=== PATIENT | female | born 1995 | race Caucasian/White ===

== ENCOUNTER 2022-11-29 18:10 | Emergency (ER) | payer BC ==
[2022-11-29] MEDS ORDERED: diphenhydrAMINE 50 MG Cap PO ONE (18:33)
[2022-11-29] MEDS ORDERED: Acetaminophen 500 MG Tab PO ONE (18:33)
[2022-11-29] MEDS ORDERED: Ketorolac 30 MG/ML SDV IM ONE (18:33)
[2022-11-29] MEDS ORDERED: Cyclobenzaprine 10 MG Tab PO ONE (18:33)
== END 2022-11-29 19:38 | disposition home or self-care (01) ==
LOC: FB.ED 18:10
DX: S39.012A Strain of muscle, fascia and tendon of lower back, initial encounter (principal); Z88.2 Allergy status to sulfonamides; Z88.1 Allergy status to other antibiotic agents
CPT/HCPCS: 96372; 99283; A9270-GY; J1885

== ENCOUNTER 2024-10-19 19:42 | Emergency (ER) | payer BC, OTHER ==
[2024-10-19] MEDS ORDERED: traMADol 50 MG Tab PO ONE (19:43)
[2024-10-19] MEDS: Sodium Chloride 0.9% 10 ML Syringe FLUSH PRN (20:15)
[2024-10-19 20:33] LABS: HEMOGLOBIN 13.8 g/dL (11.4-15.5); MEAN CORPUSCULAR HEMOGLOBIN 30.2 pg (23.9-33.9); MEAN CORPUSCULAR HGB CONC 33.7 g/dL (31.9-34.8); MEAN CORPUSCULAR VOLUME 89.5 fL (76.7-100.5); MEAN PLATELET VOLUME 7.7 fL (7.1-12.4); PLATELET COUNT,PLT 296 x10(3)uL (151-488); RED BLOOD CELL COUNT 4.58 x10(6)uL (3.60-5.20); RED CELL DISTRIBUTION WIDTH 13.3 % (12.3-16.5); WHITE BLOOD CELL COUNT,WBC 14.4 x10-3/uL (3.0-10.3)
[2024-10-19 20:39] LABS: C-REACTIVE PROTEIN 3.28 mg/dL (<0.50)
[2024-10-19 20:45] LABS: A/G RATIO 0.8; ALANINE AMINOTRANSFERASE,ALT 87 U/L (12-36); ALBUMIN 3.7 g/dL (3.5-5.2); ALKALINE PHOSPHATASE 101 IU/L (56-112); ASPARTATE AMNIOTRANSFERASE,AST 38 IU/L (5-25); BLOOD UREA NITROGEN,BUN 12 mg/dL (7-18); CALCIUM 8.9 mg/dL (8.6-10.2); CARBON DIOXIDE,CO2 28 mmol/L (21-32); CHLORIDE,CL 103 mmol/L (100-110); CREATININE 1.5 mg/dL (0.55-1.02); EST CRCL DRUG DOSING (CG) 44.56 mL/min; ESTIMATED GFR 49 mL/min (>60); GLUCOSE RANDOM 101 mg/dL (80-116); POTASSIUM,K 3.9 mmol/L (3.5-5.3); PROTEIN TOTAL,TP 8.1 g/dL (6.0-8.0); SODIUM,NA 140 mmol/L (135-145)
[2024-10-19] MEDS: Iopamidol 755 Mg/ML 100 ML Bottle IV SCH (20:45)
[2024-10-19] MEDS: Ketorolac 30 MG/ML SDV IVPUSH ONE (20:46)
[2024-10-19 20:55] LABS: LYMPHOCYTES PERCENT MAN 14 % (13-37); MONOCYTES PERCENT MAN 10 % (4-12); SEG NEUTROPHILS PERCENT MAN 76 % (46-82)
[2024-10-19 21:00] LABS: BILIRUBIN,URINE NEGATIVE (NEGATIVE); GLUCOSE,URINE NORMAL (NORMAL); KETONES,URINE NEGATIVE (NEGATIVE); LEUKOCYTE ESTERASE,URINE SMALL (NEGATIVE); NITRITE,URINE NEGATIVE (NEGATIVE); OCCULT BLOOD,URINE MODERATE (NEGATIVE); PROTEIN,URINE NEGATIVE (NEGATIVE); UROBILINOGEN,URINE NORMAL (NEGATIVE)
[2024-10-19 21:02] LABS: COLOR,URINE YELLOW (YELLOW)
[2024-10-19 21:03] LABS: APPEARANCE,URINE CLEAR (CLEAR)
[2024-10-19 21:06] LABS: BACTERIA,URINE FEW (NS); RBC,URINE 0-5 (0-5); WBC,URINE 0-5 (0-5)
[2024-10-19 21:07] LABS: SQUAMOUS EPITHELIAL CELLS,UR FEW (NS,R,O)
[2024-10-19] MEDS: Sodium Chloride 0.9% 1,000 ML IV ONE (21:11)
[2024-10-19] MEDS: Tamsulosin 0.4 MG Cap.ER PO ONE (22:00)
== END 2024-10-19 22:15 | disposition home or self-care (01) ==
LOC: FB.ED 19:42
DX: R10.9 Unspecified abdominal pain (principal); Z88.2 Allergy status to sulfonamides; Z91.013 Allergy to seafood; Z88.8 Allergy status to other drugs, medicaments and biological substances; Z79.899 Other long term (current) drug therapy
CPT/HCPCS: 36415; 74177; 80053; 81001; 83605; 83690; 85025; 86140; 96361; 96374; 99284; A9270; J1885; J7030; Q9967